=== PATIENT | female | born 1955 | race Caucasian/White ===

== ENCOUNTER 2019-03-18 09:09 | Emergency (ER) | payer MEDICARE ==
[~2019-03-18] VITALS: Ht 170.2 cm; Wt 104.5 kg
--- NOTE | 2019-03-18 10:16 | NUR ---
ULTRAOUND TECH IN ROOM
--- NOTE | 2019-03-18 10:24 | NUR ---
STRONG [facility] PT PULSES BILATERALLY RIGHT FOOT ANKLE FEELS WARMER THAN LEFT AND VERY SLIGHTLY REDDENED, MORE SWOLLEN THAN LEFT, DENIES PAIN AT REST, C/O POSTERIOR INFERIOR RLE PAIN WITH WALKING"LIMPING CONSTANTLY" PATIENT ABLE OT DISCRIMINATE BETWEEN FEET, LE: DENIES NUMNESS/TINGLING
[2019-03-18 11:30] VITALS: BP 124/69
== END 2019-03-18 11:33 | disposition home or self-care (01) ==
LOC: ER 09:11
DX: R60.0 Localized edema (principal); M79.604 Pain in right leg; L53.8 Other specified erythematous conditions; I10 Essential (primary) hypertension; Z98.890 Other specified postprocedural states; Z88.7 Allergy status to serum and vaccine
CPT/HCPCS: 93971; 99284

== ENCOUNTER 2020-05-27 08:08 | Emergency (ER) | payer MEDICARE ==
[~2020-05-27] VITALS: Ht 170.2 cm; Wt 110.0 kg
--- NOTE | 2020-05-27 08:40 | NUR ---
Pt ambulated to the restroom without assistance.
[2020-05-27] MEDS ORDERED: LIDOcaine 1% W/epiNEPHrine 1:200,000 10ml vial IJ ONE (09:15)
[2020-05-27] MEDS ORDERED: PERM60CR19 TOP (09:15)
[2020-05-27] MEDS ORDERED: CEPH250T PO (09:15)
[2020-05-27 09:40] VITALS: BP 158/81
== END 2020-05-27 09:42 | disposition home or self-care (01) ==
LOC: ER 08:08
DX: B86 Scabies (principal); L02.612 Cutaneous abscess of left foot; I10 Essential (primary) hypertension; Z98.890 Other specified postprocedural states; Z88.7 Allergy status to serum and vaccine; Z79.2 Long term (current) use of antibiotics; Z79.899 Other long term (current) drug therapy
CPT/HCPCS: 10060; 99283

== ENCOUNTER 2022-05-22 11:33 | Emergency (ER) | payer BC, MEDICARE ==
[~2022-05-22] VITALS: Ht 167.6 cm; Wt 104.5 kg
[2022-05-22 11:48] VITALS: BP 114/70
[2022-05-22] MEDS ORDERED: proparacaine 0.5% ophthalmic drops 15ml EACHEYE ONE (12:15)
[2022-05-22] MEDS ORDERED: moxifloxacin 0.5% ophthalmic drops 3ml RIGHTEYE SCH (13:15)
== END 2022-05-22 14:17 | disposition home or self-care (01) ==
LOC: ER 11:34
DX: H10.31 Unspecified acute conjunctivitis, right eye (principal); I10 Essential (primary) hypertension; Z88.7 Allergy status to serum and vaccine
CPT/HCPCS: 99283

== ENCOUNTER 2025-09-02 09:44 | Outpatient (CLI) | payer MEDICARE, OTHER ==
--- NOTE | 2025-09-02 10:45 | RADIOLOGY REPORT ---
INDICATION: LOW BACK AND PELVIC PAIN COMPARISON: None TECHNIQUE: 5 views of the lumbar spine were obtained. FINDINGS: Severe multilevel degenerative disc disease of the lumbosacral spine. No acute fracture, vertebral compression deformity or aggressive osseous lesions. The paravertebral soft tissues are grossly unremarkable. IMPRESSION: No acute fracture. Severe multilevel degenerative disc disease of the lumbosacral spine.
--- NOTE | 2025-09-02 10:45 | RADIOLOGY REPORT ---
CLINICAL INDICATION: LOW BACK AND PELVIC PAIN TECHNIQUE: 1 radiographic views of the pelvis were obtained. Comparison: None FINDINGS/IMPRESSION: There is no evidence of acute fracture or dislocation. 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 Degenerative changes of the pubic symphysis. There is no radiopaque foreign body.
== END 2025-09-02 23:59 | disposition home or self-care (01) ==
LOC: RAD 09:44
PROVIDERS: ATTEND Nurse Practitioner Family
DX: M51.379 Other intervertebral disc degeneration, lumbosacral region without mention of lumbar back pain or lower extremity pain (principal); R10.20 Pelvic and perineal pain unspecified side; M54.50 Low back pain, unspecified; M16.12 Unilateral primary osteoarthritis, left hip
CPT/HCPCS: 72110; 72170